=== PATIENT | female | born 1960 | race Caucasian/White ===

== ENCOUNTER → 2023-10-28 06:48 | Outpatient (REF) | payer OTHER, SELFPAY | LOC: HWWDC 06:48 | PROVIDERS: ATTENDING PHYSICIAN Family Medicine | DX: Z12.31 Encounter for screening mammogram for malignant neoplasm of breast (principal) | CPT/HCPCS: 77063; 77067 ==

== ENCOUNTER → 2023-12-13 09:23 | Outpatient (REF) | payer OTHER, SELFPAY | LOC: WDC 09:23 | PROVIDERS: ATTENDING PHYSICIAN Family Medicine | DX: R92.30 Dense breasts, unspecified (principal) | CPT/HCPCS: 76641 ==

== ENCOUNTER → 2024-01-31 12:31 | Outpatient (REF) | payer OTHER, SELFPAY | LOC: HWRAD 12:31 | PROVIDERS: ATTENDING PHYSICIAN Family Medicine | DX: M25.512 Pain in left shoulder (principal); Z91.81 History of falling; M79.672 Pain in left foot; M53.3 Sacrococcygeal disorders, not elsewhere classified | CPT/HCPCS: 72220; 73030; 73630 ==

== ENCOUNTER → 2024-03-13 10:03 | Outpatient (REF) | payer OTHER, SELFPAY | LOC: HWRAD 10:03 | PROVIDERS: ATTENDING PHYSICIAN Family Medicine | DX: S32.10XA Unspecified fracture of sacrum, initial encounter for closed fracture (principal) | CPT/HCPCS: 77080 ==

== ENCOUNTER → 2024-03-17 06:40 | Outpatient (REF) | payer OTHER, SELFPAY | LOC: PAVMRI 06:40 | PROVIDERS: ATTENDING PHYSICIAN Family Medicine | DX: M25.512 Pain in left shoulder (principal); Z91.81 History of falling | CPT/HCPCS: 73221 ==

== ENCOUNTER → 2024-10-28 06:46 | Outpatient (REF) | payer OTHER, SELFPAY | LOC: HWWDC 06:46 | PROVIDERS: ATTENDING PHYSICIAN Family Medicine | DX: Z12.31 Encounter for screening mammogram for malignant neoplasm of breast (principal) | CPT/HCPCS: 77063; 77067 ==